=== PATIENT | male | born 1990 | race Caucasian/White ===

== ENCOUNTER 2020-05-28 20:57 | Emergency (ER) | payer OTHER ==
[~2020-05-28 20:57] MED LIST: VIBRAMYCIN100 MG PO
[2020-05-29] MEDS ORDERED: PERCOCET 5/325 T1 EA PO (01:29)
[2020-05-29] MEDS ORDERED: PREDNISONE20 MG PO (01:29)
[2020-05-29] MEDS ORDERED: INDOCIN 50 MG C50 MG PO (01:29)
== END 2020-05-29 01:40 | disposition home or self-care (01) ==
LOC: ER1 20:57
DX: L03.116 Cellulitis of left lower limb (principal); L60.0 Ingrowing nail
CPT/HCPCS: 73630; 82962; 99283

== ENCOUNTER → 2020-12-08 | Outpatient (CLI) | payer OTHER ==
[~2020-12-08] MED LIST changes: +INDOCIN 50 MG C50 MG PO; +PERCOCET 5/325 T1 EA PO; +PREDNISONE20 MG PO
== END ==
LOC: KOH-I 10:03
DX: M51.34 Other intervertebral disc degeneration, thoracic region (principal)
CPT/HCPCS: 72070